=== PATIENT | male | born 2000 | race Caucasian/White ===

== ENCOUNTER 2022-07-09 09:22 | Outpatient (CLI) | payer BC, SELFPAY ==
--- NOTE | 2022-07-09 09:00 | CRLHL7_ITS ---
For Patients: As a result of the Century Cures Act, medical imaging exams and procedure reports are released immediately into your electronic medical record. You may view this report before your referring provider. If you have questions, please contact your health care provider. Indication: Sinusitis. Technique: CT of the sinuses performed without IV contrast Comparison: None relevant available Findings: Frontal sinuses: Clear. Ethmoid sinuses: Left Asad air cells with mild mucosal disease. Otherwise clear. Maxillary sinuses: Minimal mucosal disease Sphenoid sinuses: Clear. Mild mucosal thickening along the ostiomeatal units. The frontoethmoidal and sphenoethmoidal recesses appear patent. Nasal Cavity: Mild sinusoidal nasal septal deviation. There is no aggressive periosteal reaction, osseous erosion or effacement of the fat planes. No air-fluid levels identified. The visualized intracranial compartments appear grossly intact. Orbits appear preserved. Impression: 1. Minimal paranasal sinus disease. 2. No evidence of acute sinusitis. Please note that all CT scans at this facility use dose modulation, iterative reconstruction, and/or weight-based dosing when appropriate to reduce radiation dose to as low as reasonably achievable. Dictated by Albin Pryor MD @ 07/09/2022 12:12:33 PM (Electronically Signed)
== END 2022-07-09 09:23 | disposition home or self-care (01) ==
PROVIDERS: Visit Provider Otolaryngology
DX: J32.9 Chronic sinusitis, unspecified (principal)
CPT/HCPCS: 70486